=== PATIENT | female | born 1975 | race Caucasian/White ===

== ENCOUNTER 2017-01-05 06:39 | Day surgery (SDC) | payer MEDICAID ==
[2017-01-04 15:10] LABS: HEMATOCRIT 27.7 % (36.0-48.0); HEMOGLOBIN 8.3 g/dL (12-16); MCH 24.6 pg (26.0-34.0); MEAN PLATELET VOLUME 10.9 fL (7.4-10.4); RBC 3.38 10x6/uL (4.00-5.40); RDW 15.6 % (11.5-14.5); WBC 5.1 10x3/uL (4.8-10.8)
[~2017-01-05] VITALS: Ht 170.2 cm; Wt 54.4 kg
--- NOTE | ~2017-01-05 | OP ---
PATIENT NAME: BENTLEY FAGAN MEDICAL RECORD: [id number] :73 LOCATION:D.OPS ADMISSION DATE: SURGEON: HUANG PEREZ DPM DATE OF OPERATION: 01/05/2017 PREOPERATIVE DIAGNOSES: 1. Hammertoe, right hallux. 2. Hammertoe, right second digit. POSTOPERATIVE DIAGNOSES: 1. Hammertoe, right hallux. 2. Hammertoe, right second digit. PROCEDURES: 1. IPJ fusion, right hallux. 2. Flexor tenotomy, right second digit. ANESTHESIA: Local with IV sedation utilizing lidocaine and Marcaine plain, approximately 6 cc total on the first and second digit, right foot. HEMOSTASIS: Right ankle tourniquet at 250 mmHg. PREOPERATIVE DETAILS: The patient was taken to the OR and placed on the operative table in a supine position. This was followed by induction of general anesthesia and infiltration of local anesthetic. The right extremity was then prepped and draped in the usual aseptic technique followed by exsanguination of extremity and inflation of tourniquet. PROCEDURE NUMBER 1: IPJ fusion, right hallux. A 15-blade was used to create 2 semielliptical incisions over the dorsal aspect of the IPJ transversely. The skin wedge was removed exposing the extensor longus tendon and the dorsal aspect of the joint capsule. A linear capsulotomy was performed transversely exposing the head of the proximal phalanx and the base of the middle phalanx. A sagittal saw was used to resect both and an incision was made on the distal aspect of the hallux transversely approximately a centimeter. Dissection was carried down to bone. A guidewire was then placed into the distal aspect of the hallux across the fusion site into the proximal phalanx. It was then overdrilled and measured and screw was placed in the distal aspect of the right hallux across the fusion site with compression at the fusion site. Excellent rigid internal fixation was noted as well as compression of the osteotomy and fusion site. At this time, the extensor longus tendon was repaired with 2-0 Vicryl, the subcutaneous tissue with 4-0 Rapide and the skin was closed in both the dorsal wound of the hallux and distal wound of the hallux with 4-0 Rapide in a subcuticular technique followed by Dermabond. PROCEDURE NUMBER 2: Flexor tenotomy, right second digit. A 15-blade was used to create a small stab incision on the plantar aspect of the base of the right second digit. The incision was carried down through subcutaneous tissue to the flexor tendon with longus tendon, which was incised sharply allowing the plantar contracture to be reduced. Excellent clinical reduction of the contracture was noted. The wound was flushed and closed with 4-0 Rapide in a simple interrupted technique, followed by Dermabond, Adaptic, 4 x 4 and Conform were used to dress the wounds followed by Coban. Tourniquet was deflated. POSTOPERATIVE DETAILS: The patient tolerated the procedure well and left the OR OPERATIVE REPORT [id number] BENTLEY FAGAN with vital signs stable and vascular status at preop levels. The patient was transported to recovery per anesthesia in stable condition. TRANSINT:[id number] Voice Confirmation ID: [id number] DOCUMENT ID: [id number] HUANG PEREZ DPM CC: [id number] DICTATION DATE: 01/05/17837 CREW BOSS: 01/05/[address] [facility] 01/05/[address] [id number]
[2017-01-05 05:52] VITALS: BP 104/78; Ht 170.2 cm; Wt 54.4 kg
[~2017-01-05 06:39] MED LIST: BETAPACE AF80 MG PO; ELIQUIS5 MG PO; HYDROCODONE-APA1 TAB PO; KLONOPIN0.5 MG PO; LIPITOR40 MG PO; PEPCID40 MG PO; PROTONIX40 MG PO; VENTOLIN HFA18 GM INH; ZOLOFT25 MG PO
--- NOTE | 2017-01-05 10:20 | NUR ---
1010 DC INSTS. GIVEN, RX'S GIVEN, VOICED UNDERSTANDING, RELEASED IN WC WITH ESCORT.
== END 2017-01-05 10:10 | disposition home or self-care (01) ==
LOC: D.OPS 06:39 → D.PAN 07:00 → D.OPS 07:30
PROVIDERS: Anesthesiology
DX: M20.41 Other hammer toe(s) (acquired), right foot (principal)